=== PATIENT | male | born 1970 | race Caucasian/White ===

== ENCOUNTER → 2020-08-02 15:06 | Outpatient (BNVA) | payer BC, SELFPAY | PROVIDERS: Visit Provider Nurse Practitioner Family | DX: Z11.59 Encounter for screening for other viral diseases (principal); R21 Rash and other nonspecific skin eruption; J40 Bronchitis, not specified as acute or chronic | CPT/HCPCS: 87635 ==

== ENCOUNTER → 2020-08-05 16:43 | Outpatient (BNVA) | payer BC, SELFPAY | PROVIDERS: Referring Provider Nurse Practitioner Family; Visit Provider Nurse Practitioner Family | DX: R68.89 Other general symptoms and signs (principal) | CPT/HCPCS: 87400 ==

== ENCOUNTER 2023-02-10 18:48 | Emergency (ER) | payer BC, SELFPAY ==
[2023-02-10 18:59] VITALS: BMI 30.3
--- NOTE | 2023-02-10 19:04 | W.ED.BACK ---
HPI - Back Pain/Injury General: Chief Complaint: Back Pain/Injury Stated Complaint: back pain Time Seen by Provider: 02/10/23 19:04 Source: patient Mode of arrival: wheelchair Limitations: no limitations History of Present Illness: Patient is a 52-year-old male who presents to ED today along with his daughter for evaluation of back pain/injury. Patient states just prior to arrival he was lifting a heavy trailer in his driveway that he estimates weighed several hundred pounds he immediately felt/heard a pop to his lower back and then immediately experienced significant discomfort to the lower back radiating down into bilateral lower extremities. He is not able to ambulate secondary to discomfort. He feels like his bilateral legs are numb/tingling. He states he has a longstanding history of chronic back pains that he is normally able to treat conservatively at home with ibuprofen. He is not having any abdominal pain. He has not noticed any color or temperature changes to his lower extremity. MD elicited complaint: back pain and back injury Pertinent past history: prior back pain Onset (ago): hour(s) Timing: constant Severity: severe Pain scale (0-10): 10 Location: lumbar spine Radiation: left leg below the knee and right leg below the knee Exacerbating factors: movement and lifting Relieving factors: none Context: while lifting Associated symptoms: Reports difficulty walking; Deny abdominal pain, dysuria or hematuria Work related injury: No Review of Systems Card: Denies: chest pain Resp: Denies: dyspnea GI: Denies: abdominal pain : Denies: flank pain, dysuria or hematuria Musc: Reports: back pain and extremity pain (radiating to bilateral LEs); Denies: neck pain, extremity swelling, joint pain, joint swelling, joint redness, joint warmth or joint stiffness Neuro: Reports: numbness in extremities, weakness in extremities and difficulty walking; Denies: headache(s), lack of coordination or dizziness [facility] ED PFSH: Medical History Degenerative disc disease, lumbar Lumbar disc herniation with radiculopathy Lumbar paraspinal muscle spasm No pertinent past medical history Surgical History No pertinent past surgical history Social History Smoking and tobacco status: current every day smoker cigarettes Packs smoked per day: 1 Alcohol intake: current Alcohol type: beer Substance/Drug Use: never Physical Exam Const: COMMON NORMALS: patient oriented x3, no limitations, alert and well nourished GENERAL APPEARANCE: in distress (appears uncomfortable secondary to pain) and other (slightly belligerent-makes several references in regards to drinking etoh) ORIENTATION/CONSCIOUSNESS: Yes awake, Yes oriented to person, Yes oriented to place and Yes oriented to time HENMT: COMMON NORMALS: normocephalic and atraumatic HEAD & SCALP: normal to inspection, normocephalic and atraumatic Resp: COMMON NORMALS: normal respiratory effort and clear to auscultation bilaterally AUSCULTATION: clear to auscultation bilaterally Cardio: COMMON NORMALS: regular rate and regular rhythm RATE: regular rate RHYTHM: regular rhythm GI: COMMON NORMALS: Normal to inspection, nondistended, normoactive bowel sounds present, Soft to palpation, non-tender, No hepatosplenomegaly present and no masses PALPATION: Yes Soft to palpation and Yes No hepatosplenomegaly present Back/Pelvis: LUMBAR SPINE/LOWER BACK: Yes ROM limited, Yes lumbar spinal tenderness (patient abruptly grabs my hand at any form of lumbar palpation) and Yes paraspinal muscle tenderness PELVIS: Yes buttocks normal and No sciatic notch tenderness SACROILIAC JOINTS: Yes SI joints normal SACRUM: no tenderness COCCYX: no tenderness Extremity: COMMON NORMALS: capillary refill normal, no joint enlargement, no clubbing, cyanosis or edema, no calf tenderness and no pedal edema NARRATIVE EXTREMITY EXAM: refuses to do any ROM testing of bilateral LEs secondary to back pain GENERAL: Yes normal exam except as noted Neuro: COMMON NORMALS: patient oriented x3 SENSORIUM/ORIENTATION: Yes alert, Yes oriented to person, Yes oriented to place and Yes oriented to time GAIT: Yes Unable to assess gait Skin: COMMON NORMALS: no rashes or lesions noted GENERAL SKIN EXAM: no rashes or lesions noted Course Vital Signs: Vital signs: Vital Signs Temperature 98.2 F 02/10/23 19:13 Pulse Rate 59 L 02/10/23 21:38 Respiratory Rate 18 02/10/23 21:38 Blood Pressure 128/84 02/10/23 21:38 Pulse Oximetry 93 02/10/23 21:38 Oxygen Delivery Me thod Room Air 02/10/23 20:13 MDM - Back Pain/Injury Medical Decision Making After IV medications patient was able to get up from his bed and ambulate in the ED with the assistance of staff and a walker. Patient's lumbar spine CT is significantly limited secondary to motion artifact. Recommended patient undergo repeat imaging now that pain seems to be improved but he refuses. He seems aggravated that he has had chronic lower back pain but nobody seems to be able to treat or cure. Initial physical exam was difficult and limited secondary to patient's pain. Repeat examination is improved and he now has some strength against resistance of lower extremities. No acute neurologic deficits appreciated. Denies bowel/bladder dysfunction. We will have him follow-up with Dr. Charles. Return to ED precautions given. Patient was just prescribed steroids for a bronchitis so will have him continue those and will add pain meds/NSAIDS/muscle relaxers. Labs Radiology Impressions Lumbar Spine CT 02/10/23 19:11 IMPRESSION: 1. The exam is limited by extensive motion artifact especially through the upper lumbar spine. Severe degenerative changes without definite acute bony abnormality. Extensive streak artifact through T12-L1. No fracture in the lower lumbar spine. 2. Imaging of the spinal canal and disc detail is limited due to the motion artifact but there is a right paracentral disc protrusion at L2-L3 with moderate to severe narrowing of the right foramina but no critical central canal stenosis. 3. There is a right paracentral disc protrusion with severe right foraminal narrowing at L3-L4. No critical central canal stenosis. Discharge Plan Discharge Patient Disposition: Home Clinical Impression: Lumbar disc herniation with radiculopathy Condition: Stable Prescriptions: New methocarbamol 500 mg tablet 1,000 mg PO Q8H Qty: 30 0RF ibuprofen 800 mg tablet 800 mg PO Q8H PRN (Reason: pain) Qty: 20 0RF hydrocodone-acetaminophen 5-325 mg tablet 1 tab PO Q6H PRN (Reason: pain) Qty: 14 0RF No Action levofloxacin 750 mg tablet 750 mg PO DAILY 7 Days Qty: 7 0RF prednisone 20 mg tablet 60 mg PO DAILY 5 Days Qty: 15 0RF Discharge Orders: Discharge ED (Routine); Ordered 02/10/23 Ordered By: Pina Torres Patient Instructions: Opioid Safety, Pain Management Activity Restrictions/Additional Instructions: As we discussed case management should reach out to you early this week to set you up with your follow-up appointment with Dr. Charles. 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
--- NOTE | 2023-02-10 19:11 | CTR_ITS ---
PROCEDURE INFORMATION: Exam: CT Lumbar Spine Without Contrast Exam date and time: 02/10/2023 7:25 PM Age: 52 years old Clinical indication: Numbness; Low back pain; Patient HX: Unable to feel b/l lower extremities after lifting injury; Additional info: Lifting injury; Cannot ambulate; Bilateral leg pain/numbness TECHNIQUE: Imaging protocol: Computed tomography of the lumbar spine without contrast. Radiation optimization: All CT scans at this facility use at least one of these dose optimization techniques: automated exposure control; mA and/or kV adjustment per patient size (includes targeted exams where dose is matched to clinical indication); or iterative reconstruction. REPORTING DATA: Count of CT and Cardiac NM exams in prior 12 months: This patient has received 0 known CTs and 0 known cardiac nuclear medicine studies in the 12 months prior to the current study. COMPARISON: No relevant prior studies available. RADIATION DOSE METRICS: Total DLP (mGy-cm): 1370.36 FINDINGS: Bones/joints: The exam is limited by extensive motion artifact especially through the upper lumbar spine. Severe diffuse degenerative changes are noted with disc space narrowing, vacuum disc and endplate sclerosis with exuberant osteophytes at L2 through L5. There is degenerative retrolisthesis of L2 on L5. No acute fracture. Imaging of the spinal canal and disc detail is limited due to the motion artifact but there is a right paracentral disc protrusion at L2-L3 with moderate to severe narrowing of the right foramina but no critical central canal stenosis. There is a right paracentral disc protrusion with severe right foraminal narrowing at L3-L4. No critical central canal stenosis. There is a very small disc bulge at L4-L5 with mild foraminal narrowing and no critical stenosis. Soft tissues: Unremarkable. CT/CT lumbar spine wo con* [id number] IMPRESSION: 1. The exam is limited by extensive motion artifact especially through the upper lumbar spine. Severe degenerative changes without definite acute bony abnormality. Extensive streak artifact through T12-L1. No fracture in the lower lumbar spine. 2. Imaging of the spinal canal and disc detail is limited due to the motion artifact but there is a right paracentral disc protrusion at L2-L3 with moderate to severe narrowing of the right foramina but no critical central canal stenosis. 3. There is a right paracentral disc protrusion with severe right foraminal narrowing at L3-L4. No critical central canal stenosis.
[2023-02-10 19:13] VITALS: BP 135/101; PULSE 77; RESP 18; TEMP 36.8; O2SAT 94
[2023-02-10] MEDS: dexamethasone 10 mg/mL INJ IV (19:15)
[2023-02-10] MEDS: ketorolac 60 mg/2 mL INJ 30 MG IVP (19:17)
[2023-02-10] MEDS: orphenadrine 30 mg/mL Inj 2 mL 60 MG IV (19:19)
[2023-02-10 19:20] VITALS: RESP 16
[2023-02-10] MEDS: morphine 4 mg/mL SDV 1 mL IVP (19:20)
[2023-02-10 20:10] VITALS: RESP 18
[2023-02-10] MEDS: HYDROmorphone 1 mg/mL INJ 1 mL IVP (20:10)
[2023-02-10 20:13] VITALS: BP 112/82; PULSE 71; RESP 18; O2SAT 94
[2023-02-10 21:38] VITALS: BP 128/84; PULSE 59; RESP 18; O2SAT 93
--- NOTE | 2023-02-11 10:13 | PC.SOCIAL ---
Addendum entered by Yane Thomason 02/19/23 10:06: Patient had a follow up appointment scheduled for 02.14.[address] Charles at ortho - patient did attend appointment. Original Note: Ortho Referral Consult received for ortho referral. Message sent to clinic at this time, clinic to contact patient with appt date/time.
--- NOTE | 2023-02-20 15:48 | DCPLANNER ---
TCM called patient due to no primary care physician - no answer at this time.
== END 2023-02-10 21:42 | disposition home or self-care (01) ==
PROVIDERS: Emergency Provider Physician Assistant
DX: M51.26 Other intervertebral disc displacement, lumbar region (principal); F17.210 Nicotine dependence, cigarettes, uncomplicated
CPT/HCPCS: 72131; 96374; 96375; 99284; J1100; J1170; J1885; J2270; J2360

== ENCOUNTER → 2023-02-14 08:16 | Outpatient (BNVA) | payer BC, SELFPAY | PROVIDERS: Referring Provider Physician Assistant; Visit Provider Orthopaedic Surgery | DX: M51.16 Intervertebral disc disorders with radiculopathy, lumbar region; M48.062 Spinal stenosis, lumbar region with neurogenic claudication | CPT/HCPCS: 72110 ==

== ENCOUNTER → 2023-05-23 08:29 | Outpatient (BNVA) | payer BC, SELFPAY | PROVIDERS: Visit Provider Orthopaedic Surgery | DX: M48.062 Spinal stenosis, lumbar region with neurogenic claudication (principal) | CPT/HCPCS: 72100 ==

== ENCOUNTER 2023-06-14 07:11 | Outpatient (CLI) | payer BC, SELFPAY ==
--- NOTE | 2023-06-14 07:15 | MR_ITS ---
WS: [id number] MRI LUMBAR SPINE NONCONTRAST HISTORY: Lumbar pain COMPARISON: Radiographs 05/23/2023 TECHNIQUE: Sagittal and axial multisequence imaging is submitted. Anterior cervical fusion at C6-7. Small focal disc protrusions throughout the thoracic spine. No cord compression. Straightening and slight reversal of the normal lumbar lordosis. Retrolisthesis of L2 and L3 by 3 and 4 mm respectively. There is a large amount of marrow edema which is likely reactive throughout the L 3 and L4 vertebral bodies. Marrow edema continues into the RIGHT L3 and L4 pedicles. No fractures or loss of height. Disc spaces are all narrowed and desiccated. Most significant narrowing is at L2-3 and L3-4. Conus terminates normally at L1-2 disc level. L1-L2: Normal. L2-L3: Diffuse annular disc bulging encroaching upon the ventral thecal sac and the subarticular rece sses. Mild central and bilateral subarticular recess stenosis. Disc encroachment upon the traversing L3 nerve roots. L3-L4: Diffuse annular disc bulging with diffuse osteophytic ridging encroaching upon the ventral the norberto sac. Focal disc protrusion in the RIGHT foramen. Mild central stenosis with disc encroachment and contact upon the traversing L4 nerve roots. Moderate RIGHT and mild LEFT foraminal narrowing. L4-L5: Mild annular disc bulging and osteophytic ridging. Disc is asymmetrically bulging into the LEF T subarticular recess and LEFT foramen. Disc contacts and slightly displaces the LEFT traversing L5 n erve root. Mild central and bilateral subarticular recess stenosis. LEFT foraminal disc contacts the exiting L4 nerve root also. L5-S1: Mild facet arthritis. No stenosis. Paravertebral soft tissues are normal. IMPRESSION: 1. Extensive marrow edema within the L3 and L4 vertebral bodies continuing into the RIGHT pedicles. N o fractures. 2. L3-4: Mild central and subarticular recess stenosis. Additional moderate RIGHT and mild LEFT will inal stenosis. Disc contacts the traversing L4 nerve roots. 3. L4-5: Asymmetric disc bulging into the LEFT subarticular recess and LEFT foramen. Disc contacts an d displaces the LEFT L5 nerve root. Mild central and bilateral subarticular recess stenosis. LEFT for aminal disc protrusion contacts the exiting L4 nerve root. 4. L2-3: Mild central and bilateral subarticular recess stenosis. 5. Retrolisthesis of L2 and L3 by 3 and 4 mm respectively.
== END 2023-06-14 07:12 | disposition home or self-care (01) ==
PROVIDERS: PCP Family Medicine; Visit Provider Orthopaedic Surgery
DX: M48.062 Spinal stenosis, lumbar region with neurogenic claudication (principal); M51.26 Other intervertebral disc displacement, lumbar region
CPT/HCPCS: 72148

== ENCOUNTER → 2023-06-18 16:35 | Outpatient (BNVA) | payer BC, SELFPAY | PROVIDERS: PCP Family Medicine; Visit Provider Orthopaedic Surgery | DX: M48.062 Spinal stenosis, lumbar region with neurogenic claudication (principal); Z79.899 Other long term (current) drug therapy | CPT/HCPCS: 36415; 80053; 81003; 85025 ==

== ENCOUNTER 2023-07-05 08:49 | Day surgery (SDC) | payer BC, SELFPAY ==
[2023-07-05] VITALS (14 sets, daily range): BP systolic 127–167; BP diastolic 80–98; PULSE 45–62; RESP 12–23; TEMP 36.1–36.4; O2SAT 95–99; BMI 31.8
--- NOTE | 2023-07-05 | XR_ITS ---
WS: [id number] Lumbar spine, C-arm fluoroscopy views, 07/05/2023 Clinical Data: or pic, right sided L2-5 decompression Comparison: Lumbar spine, 05/23/2023 Findings: Dr. Charles performed a lumbar decompression. Impression: Lumbar decompression.
[2023-07-05] MEDS: sodium chloride 0.9% 1,000 ML 30 ML IV (09:50)
[2023-07-05] MEDS: HYDROmorphone 1 mg/mL INJ 1 mL 0.5 MG IVP (09:58)
--- NOTE | 2023-07-05 10:01 | ANES.PREANE2 ---
Pre-Anesthetic Assessment Height/Weight: Height 1.83 m Weight 106.594 kg Temp Pulse Resp BP Pulse Ox O2 Del Method 97.5 F L 62 17 127/98 98 Room Air 07/05/23 09:08 07/05/23 09:08 07/05/23 09:58 07/05/23 09:08 07/05/23 09:08 07/05/23 09:09 Preop Diagnosis: Lumbar stenosis Operation Date: 07/05/23 10:20 Proposed Procedures p Lumbar Spine Decompression(Standing on Right)(Not Applicable) - Gilmer Charles, Familial anesthetic complications: none Was Beta Bebe taken within 24 hours: N/A Was Clonidine taken within 24 hours: N/A Last intake: Intake Last Liquid Date 07/04/23 Last Liquid Time 00:00 Last Solid Date 07/04/23 Last Solid Time 19:00 Social Tobacco and No alcohol Exam alert, oriented x 3 and regular rate & rhythm Airway Submandibular: within normal limits Cervical ROM: within normal limits Mallampati: Class II Dentition: chipped Pulmonary Chronic Obstructive Pulmonary Disease CV/HEM Hypertension Metabolic Morbid Obesity [facility] [place] Lower Back Pain and Osteoarthritis/DJD Anesthetic Plan ASA status: 3 Anesthesia: General Medications/Allergies Home Medications Medication Instructions Recorded Confirmed Last Taken Type hydrocodone 5 mg-acetaminophen 325 1 tab PO Q6H PRN pain #14 tabs 02/10/23 07/05/23 07/04/23 Rx mg tablet losartan 50 mg-hydrochlorothiazide 1 tab PO DAILY 06/28/23 07/04/23 07/04/23 History 12.5 mg tablet Allergies Allergy/AdvReac Type Severity Reaction Status Date / Time No Known Allergies Allergy Verified 07/04/23 10:27 Current Medications Generic Name Dose Route Start Last Admin Trade Name Freq PRN Reason Stop Dose Admin Hydromorphone HCl 0.5 mg 07/05/23 08:54 07/05/23 09:58 Hydromorphone 1 Mg/Ml Inj 1 Ml IVP 0.5 mg ONCE PRN Administration For preop pain/anxiety Sodium Chloride 1,000 mls @ 30 mls/hr 07/05/23 09:00 07/05/23 09:50 Sodium Chloride 0.9% IV 07/06/23 08:59 30 mls/hr .Q24H IHSAN Administration PFSH Anesthesia Medical History Degenerative disc disease, lumbar Lumbar disc herniation with radiculopathy Lumbar paraspinal muscle spasm No pertinent past medical history Surgical History No pertinent past surgical history Social History Smoking and tobacco/nicotine status: current every day tobacco/nicotine user cigarettes Packs smoked per day: 1 Alcohol intake: current Alcohol type: beer Substance/Drug Use: never Data Anesthesia Cardiac Studies: No Data to Display
[2023-07-05] MEDS: ceFAZolin 2,000 MG in sodium chloride 0.9% (plus) 50 ML 100 MG IV (10:18)
[2023-07-05] MEDS: lidocaine-epi 2% 20 mL INJ INJECTION (11:24)
--- NOTE | 2023-07-05 12:11 | P.OP_ITS ---
Operative Report Date of procedure: July 05, 2023 Pre-op diagnosis: Lumbar stenosis with neurogenic claudication Post-op diagnosis: same Procedure done: 1. L2-3 laminectomy with partial facetectomies 2. L3-4 laminectomy with partial facetectomies 3. L4-5 laminectomy with partial facetectomies Surgeon: Gilmer Charles DO Tumbler Dyeing Machine Operator: none Estimated blood loss (mL): 15 Procedure: 1. L2-3 laminectomy with partial facetectomies 2. L3-4 laminectomy with partial facetectomies 3. L4-5 laminectomy with partial facetectomies Patient is brought to the operative suite. After undergoing anesthesia they are placed in the prone position. All areas of impingement are well padded. Patient is then prepped and draped in the normal sterile fashion. A skin incision is made over the L2/3 level. This is confirmed under c-arm guidance. A series of dilators are passed and the tubular retractor is docked on the L2 lamina. A bovie is used to clear the soft tissue off the lamina and the L 2/3 facet joint. A high speed latrice is then used to perform the laminectomy and take down the medial aspect of the L 2/3 facet joint. A kerrison rongeure was then used to take down the remaining lamina and smooth the edged of the laminectomy up to the point where the ligamentum flavum attaches. Attention was then brought to the medial aspect of the facet joint. The remaining medial aspect of the superior and inferior aspect of the facet joint were taken down with the kerrison from the pedicle of L2 to L 3. The facet joint had significant hypertrophy. Attention was then brought to the Ligamentum Flavum. The ligament was taken down from the lamina of L2 to L3 and out medially to the remaining facet joint. The ligament was thickened. The dura was then exposed. The dura was in good repair. The L2 nerve was then traced with a curette out the L2/3 foramen and found to be adequately decompressed. The L3 nerve was traced with a curette around the L3 pedicle. The lateral recess was opened with a kerrison helping to further decompress the L3 nerve. The tubular retractor was then tilted to the contralateral side. The bovie was used to take down the soft tissue on the spinous process. The high speed latrice was used to take down the spinous process and then the contralateral lamina of L2. The kerrison rongeur was used to take down the remaining lamina to the point where the ligamentum flavum attached and the ligamentum flavum was taken down from L2 to L3. The kerrison rongeur was then used to reach across and take down the medial aspect of the contralateral L2/3 facet joint.The currete was used to trace the contralateral L2 nerve out the L2/3 foramen to make sure it was decompressed adequatesly and the L3 was traced around the L3 pedicle. The lateral recess was opened further with the kerrison to ensure the L3 is adequ ately decompressed. Wound is then irrigated copiously with saline and surgiflo is used to stop any bleeding. The tubular retractor is removed. A skin incision is made over the L3/4 level. This is confirmed under c-arm guidance. A series of dilators are passed and the tubular retractor is docked on the L3 lamina. A bovie is used to clear the soft tissue off the lamina and the L 3/4 facet joint. A high speed latrice is then used to perform the laminectomy and take down the medial aspect of the L 3/4 facet joint. A kerrison rongeure was then used to take down the remaining lamina and smooth the edged of the laminectomy up to the point where the ligamentum flavum attaches. Attention was then brought to the medial aspect of the facet joint. The remaining medial aspect of the superior and inferior aspect of the facet joint were taken down with the kerrison from the pedicle of L3 to L 4. The facet joint had significant hypertrophy. Attention was then brought to the Ligamentum Flavum. The ligament was taken down from the lamina of L3 to L4 and out medially to the remaining facet joint. The ligament was thick. The dura was then exposed. The dura was in good repair. The L3 nerve was then traced with a curette out the L3/4 foramen and found to be adequately decompressed. The L4 nerve was traced with a curette around the L4 pedicle. The lateral recess was opened with a kerrison helping to further decompress the L4 nerve. The tubular retractor was then tilted to the contralateral side. The bovie was used to take down the soft tissue on the spinous process. The high speed latrice was used to take down the spinous process and then the contralateral lamina of L3. The kerrison rongeur was used to take down the remaining lamina to the point where the ligamentum flavum attached and the ligamentum flavum was taken down from L3 to L4. The kerrison rongeur was then used to reach across and take down the medial aspect of the contralateral L3/4 facet joint.The currete was us ed to trace the contralateral L3 nerve out the L3/4 foramen to make sure it was decompressed adequatesly and the L4 was traced around the L4 pedicle. The lateral recess was opened further with the kerrison to ensure the L4 is adequately decompressed. Wound is then irrigated copiously with saline and surgiflo is used to stop any bleeding. The tubular retractor is removed. A skin incision is made over the L4/5 level. This is confirmed under c-arm guidance. A series of dilators are passed and the tubular retractor is docked on the L4 lamina. A bovie is used to clear the soft tissue off the lamina and the L 4/5 facet joint. A high speed latrice is then used to perform the laminectomy and take down the medial aspect of the L 4/5 facet joint. A kerrison rongeure was then used to take down the remaining lamina and smooth the edged of the laminectomy up to the point where the ligamentum flavum attaches. Attention was then brought to the medial aspect of the facet joint. The remaining medial aspect of the superior and inferior aspect of the facet joint were taken down with the kerrison from the pedicle of L4 to L 5. The facet joint had significant hypertrophy. Attention was then brought to the Ligamentum Flavum. The ligament was taken down from the lamina of L4 to L5 and out medially to the remaining facet joint. The ligament was thick. The dura was then exposed. The dura was in good repair. The L4 nerve was then traced with a curette out the L4/5 foramen and found to be adequately decompressed. The L5 nerve was traced with a curette around the L5 pedicle. The lateral recess was opened with a kerrison helping to further decompress the L5 nerve. The tubular retractor was then tilted to the contralateral side. The bovie was used to take down the soft tissue on the spinous process. The high speed latrice was used to take down the spinous process and then the contralateral lamina of L4. The kerrison rongeur was used to take down the remaining lamina to the point where the ligamentum flavum attached and the ligamentum flavum was taken down from L4 to L5. The kerrison rongeur was then used to reach across and take down the medial aspect of the contralateral L4/5 facet joint.The currete was used to trace the contralateral L4 nerve out the L4/5 foramen to make sure it was decompressed adequatesly and the L5 was traced around the L5 pedicle. The lateral recess was opened further with the kerrison to ensure the L5 is adequately decompressed. Wound is then irrigated copiously with saline and surgiflo is used to stop any bleeding. The tubular retractor is removed and the wound is closed with vicryl and monocryl suture. Glue is then used to protect the wound. A sterile dressing is then placed. Patient was then placed in the supine position and transferred to the PACU in stable condition.
[2023-07-05] MEDS: fentaNYL 50 mcg/mL INJ 2mL IVP (12:30)
[2023-07-05] MEDS: HYDROcodone-acetaminophen 5-325 mg Tablet 2 TAB PO (13:22)
--- NOTE | 2023-07-05 13:59 | ANE.PACU2 ---
Inpatient post-anesthesia follow up: Airway intact: Yes Vital signs: Temperature 97.1 F Pulse Rate 52 Respiratory Rate 19 Blood Pressure 135/81 Pulse Oximetry 95 Oxygen Delivery Me thod Room Air Oxygen Flow Rate 2 Fraction of Inspir ed Oxygen Hydration adequate: Yes Nausea and vomiting: No Pain level: 3 Mental status: Baseline
--- NOTE | 2023-07-08 14:21 | W.PM.OPSUD ---
Surgery/Procedure H&P Update DATE OF PROCEDURE: July 08, 2023 DATE H&P PERFORMED: 07/05/23 H&P UPDATE INFORMATION: I have reviewed H&P completed within last 30 days, I have examined patient prior to procedure and No changes to prior documentation PREOP DIAGNOSIS: Lumbar stenosis PLANNED PROCEDURE: Operation Date: 07/05/23 10:20 Proposed Procedures p Lumbar Spine Decompression(Standing on Right)(Not Applicable) - Gilmer Charles DO
--- NOTE | 2023-07-08 14:21 | W.PM.OPSUD ---
Surgery/Procedure H&P Update DATE OF PROCEDURE: July 08, 2023 DATE H&P PERFORMED: 06/28/23 H&P UPDATE INFORMATION: I have reviewed H&P completed within last 30 days, I have examined patient prior to procedure and No changes to prior documentation PREOP DIAGNOSIS: Lumbar stenosis PLANNED PROCEDURE: Operation Date: 07/05/23 10:20 Proposed Procedures p Lumbar Spine Decompression(Standing on Right)(Not Applicable) - Gilmer Charles DO
== END 2023-07-05 13:53 | disposition home or self-care (01) ==
PROVIDERS: PCP Family Medicine; Visit Provider Orthopaedic Surgery
PROC: (CPT 63005; principal; 2023-07-05 10:10)
DX: M48.062 Spinal stenosis, lumbar region with neurogenic claudication (principal); J44.9 Chronic obstructive pulmonary disease, unspecified; I10 Essential (primary) hypertension; E66.01 Morbid (severe) obesity due to excess calories; Z68.31 Body mass index [BMI] 31.0-31.9, adult; F17.210 Nicotine dependence, cigarettes, uncomplicated
CPT/HCPCS: 63047; 63048 ×2; 72020; 76000; J0131; J0690; J1100; J1170; J2405; J2704; J3010; J3490; J7030

== ENCOUNTER → 2023-12-23 14:36 | Outpatient (BNVA) | payer BC, SELFPAY | PROVIDERS: PCP Family Medicine; Visit Provider Family Medicine | DX: I10 Essential (primary) hypertension (principal); N52.9 Male erectile dysfunction, unspecified; Z12.5 Encounter for screening for malignant neoplasm of prostate; Z13.220 Encounter for screening for lipoid disorders; Z13.6 Encounter for screening for cardiovascular disorders; N52.01 Erectile dysfunction due to arterial insufficiency; Z76.89 Persons encountering health services in other specified circumstances | CPT/HCPCS: 80053; 80061; G0103 ==

== ENCOUNTER → 2024-01-29 15:55 | Outpatient (BNVA) | payer BC, SELFPAY | PROVIDERS: PCP Family Medicine; Visit Provider Family Medicine | DX: R07.81 Pleurodynia (principal) | CPT/HCPCS: 71110; 72070 ==

== ENCOUNTER → 2024-10-30 09:58 | Outpatient (BNVA) | payer BC, SELFPAY | PROVIDERS: PCP Family Medicine; Visit Provider Nurse Practitioner | DX: M25.562 Pain in left knee (principal) | CPT/HCPCS: 73562 ==

== ENCOUNTER → 2025-04-06 15:41 | Outpatient (BNVA) | payer BC, SELFPAY | PROVIDERS: PCP Family Medicine; Visit Provider Family Medicine | DX: I10 Essential (primary) hypertension (principal) | CPT/HCPCS: 80048 ==